=== PATIENT | female | born 1995 | race Caucasian/White ===

== ENCOUNTER 2019-05-19 06:15 | Inpatient (IN) ==
[2019-05-19] MEDS ORDERED: D5 1/2 NS 1000 ML 1,000 ML IV ONE (06:27)
[2019-05-19] MEDS ORDERED: D5LR 1L W PITOCIN 10 UNITS/L 10 UNITS/1,000 ML BAG IV PRN (06:45)
[2019-05-19] MEDS ORDERED: AMPICILLIN VIAL 2 GRAM 2 G in NS 100 ML IV + SPIKE MINIBAG* 100 ML IV SCH (06:45)
[2019-05-19] MEDS ORDERED: MORPHINE SULFATE INJ 2 MG INJ IVP PRN (06:45)
[2019-05-19] MEDS ORDERED: REGLAN INJ 10 MG VIAL IVP PRN ×2 (06:45→18:02)
[2019-05-19] MEDS ORDERED: PITOCIN IVP ONE (06:45)
[2019-05-19] MEDS ORDERED: NUBAIN INJ 200 MG VIAL MULTIDOSE IVP PRN (06:45)
[2019-05-19] MEDS ORDERED: PHENERGAN INJ 25 MG IM PRN ×2 (06:45→18:02)
--- NOTE | 2019-05-19 07:25 | DR.OB ---
OB Quick Note - Assessment/Plan Assessment/Plan: L&D 05/19/19 at 7:00am S-No complaint. O-Afebrile,VSS PPZ=058 with good LTV, +accel, no decel. CTX=none CVX=1cm/50%/-1/VTX AROM with clear fluid. IUPC placed. A-IUP at 39 5/7 weeks for induction A1DM +GBS P-Begin pitocin induction IV ABX in labor for +GBS Patient desires PP BTL Anticipate
[2019-05-19] MEDS ORDERED: AMPICILLIN VIAL 2 GRAM ONE (07:29)
[2019-05-19] MEDS ORDERED: NS 100 ML IV 100 ML IV ONE ×3 (07:29→15:09)
[2019-05-19] MEDS ORDERED: D5LR 1L W PITOCIN 10 UNITS/L 10 UNITS/1,000 ML BAG IV ONE (07:36)
--- NOTE | 2019-05-19 11:15 | DR.OB ---
OB Quick Note - Assessment/Plan Assessment/Plan: L&D 05/19/19 at 11:05am Pitocin=16mu/min. Ampicillin S-No complaint. O-Afebrile,VSS DRX=018 with good LTV, +accel, no decel. CTX=q 1 1/2 to 2 1/2 min., about 35-55mmHg CVX=1cm/50%/-1 A-IUP at 39 5/7 weeks for induction A1DM +GBS P-Cont. pitocin induction/ABX in labor Anticipate
[2019-05-19] MEDS ORDERED: NUBAIN INJ 10 ONE ×2 (12:37→15:07)
[2019-05-19] MEDS ORDERED: AMPICILLIN VIAL 1 GRAM ONE ×2 (12:37→15:31)
[2019-05-19] MEDS: AMPICILLIN VIAL 1 GRAM 1 G in NS 50 ML IV + SPIKE MINIBAG* 50 ML IV SCH ×2 (13:16→15:06)
[2019-05-19] MEDS: VSL#3 PO SCH (13:16)
[2019-05-19] MEDS: D5 1/2 NS 1000 ML 1,000 ML IV SCH ×2 (13:17→15:06)
[2019-05-19] MEDS ORDERED: ANCEF 1 GRAM IV PREMIX* 0 G/0 ML BAG IV ONE (15:08)
[2019-05-19] MEDS ORDERED: ANCEF 1 GRAM IV PREMIX* 1 G/50 ML BAG IV ONE (15:34)
[2019-05-19] MEDS ORDERED: XYLOCAINE 1 % (PLAIN) ONE (15:45)
[2019-05-19] MEDS ORDERED: DILAUDID INJ ONE (15:45)
[2019-05-19] MEDS ORDERED: D5 1/2 NS 1L W PITOCIN 20 UNITS/L 20 UNITS/1,000 ML BAG IV ONE (16:07)
[2019-05-19] MEDS ORDERED: LR 1000 ML IV 2,000 ML IV ONE (16:07)
--- NOTE | 2019-05-19 16:44 | DR.OB ---
OB Quick Note - Assessment/Plan Assessment/Plan: L&D 05/19/19 at 4:20pm Pitocin=20mu/min. Ampicillin S-No complaint. O-Afebrile,VSS PVR=908 with good LTV, +accel, no decel. CTX=q 1 1/2 to 2 min., about 45-55mmHg CVX=1cm/50%/-1 A-IUP at 39 5/7 weeks with failure to dilate P-To C/S.
[2019-05-19] MEDS ORDERED: ZOFRAN INJ 4 MG VIAL IVP PRN ×2 (18:02→18:32)
[2019-05-19] MEDS ORDERED: BENADRYL INJ 50 MG VIAL IVP PRN ×2 (18:02→18:32)
[2019-05-19] MEDS ORDERED: ADACEL or BOOSTRIX TDaP VACCINE IM ONE ×2 (18:32→21:26)
[2019-05-19] MEDS ORDERED: PERCOCET TAB 5/325 MG PO PRN (18:32)
[2019-05-19] MEDS ORDERED: NARCAN INJ IVP PRN (18:32)
[2019-05-19] MEDS ORDERED: MYLICON TAB 80 MG CHEW PO PRN (18:32)
[2019-05-19] MEDS ORDERED: D5 1/2 NS 1000 ML 1,000 ML with PITOCIN 20 UNITS IV SCH ×2 (19:00)
[2019-05-19] MEDS: ZANTAC PO SCH (21:14)
[2019-05-19] MEDS: TORADOL 30 MG VIAL IVP PRN (22:00)
[2019-05-20 04:05] LABS: HEMATOCRIT 30.5 % (36.0-47.0)
[2019-05-20 04:07] LABS: HEMOGLOBIN 10.6 g/dL (12.0-16.0)
[2019-05-20] MEDS: TORADOL 30 MG VIAL IVP PRN (04:37)
[2019-05-20] MEDS: PRENATAL PLUS PO SCH (08:08)
[2019-05-20] MEDS: ZANTAC PO SCH ×2 (08:08→20:10)
[2019-05-20] MEDS: VSL#3 PO SCH (08:09)
[2019-05-20] MEDS: MOTRIN TAB 800 MG PO PRN ×2 (08:09→20:08)
[2019-05-20] MEDS: COLACE CAP 100 MG PO SCH ×2 (08:10→20:10)
[2019-05-20] MEDS: PERCOCET TAB 5/325 MG PO PRN ×2 (12:33→21:26)
[2019-05-20] MEDS: BACTROBAN CREAM TOP SCH ×2 (13:39→21:28)
[2019-05-20] MEDS ORDERED: PITOCIN ONE (15:54)
[2019-05-20] MEDS ORDERED: MARCAINE SPINAL ONE (15:54)
[2019-05-20] MEDS ORDERED: REGLAN INJ 10 MG VIAL ONE (15:54)
[2019-05-20] MEDS ORDERED: EPHEDRINE SULFATE INJ ONE (15:54)
[2019-05-20] MEDS ORDERED: ZOFRAN INJ 4 MG VIAL ONE (15:54)
[2019-05-20] MEDS ORDERED: DIPRIVAN VIAL ONE (15:54)
[2019-05-20] MEDS: FERROUS GLUCONATE PO SCH (16:59)
[2019-05-21] MEDS: PERCOCET TAB 5/325 MG PO PRN ×2 (05:29→10:15)
[2019-05-21] MEDS: BACTROBAN CREAM TOP SCH (05:30)
[2019-05-21] MEDS: FERROUS GLUCONATE PO SCH (06:15)
[2019-05-21] MEDS: ZANTAC PO SCH (08:38)
[2019-05-21] MEDS: VSL#3 PO SCH (08:38)
[2019-05-21] MEDS: PRENATAL PLUS PO SCH (08:38)
[2019-05-21] MEDS: COLACE CAP 100 MG PO SCH (08:38)
[2019-05-21 09:59] VITALS: BP 117/75
== END 2019-05-21 11:37 | disposition home or self-care (01) | DRG 784 ==
LOC: LD 06:15 → MED/SURG 18:31
PROVIDERS: ADMIT Specialist; ATTEND Specialist
DX: O98.311 Other infections with a predominantly sexual mode of transmission complicating pregnancy, first trimester; Z3A.39 39 weeks gestation of pregnancy; Z01.818 Encounter for other preprocedural examination; O24.410 Gestational diabetes mellitus in pregnancy, diet controlled; Z23 Encounter for immunization; Z30.2 Encounter for sterilization; B95.1 Streptococcus, group B, as the cause of diseases classified elsewhere; F12.90 Cannabis use, unspecified, uncomplicated; G43.819 Other migraine, intractable, without status migrainosus; O99.824 Streptococcus B carrier state complicating childbirth; Z37.0 Single live birth; O99.89 Other specified diseases and conditions complicating pregnancy, childbirth and the puerperium; O62.0 Primary inadequate contractions
CPT/HCPCS: 36415; 80048; 80307; 81001; 85014; 85018; 85025; 86592; 86850; 86900; 86901; 90715; A4216; A4222; S0197; G0434; J0290; J0690; J1170; J1885; J2300; J2405; J2590; J2704; J2765; J3490; J7050; J7120; S5010